=== PATIENT | male | born 1990 | race American Indian/Alaskan Native ===

== ENCOUNTER 2016-08-14 20:45 | Observation (INO) | payer OTHER ==
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
[2016-08-14 22:10] LABS: PH,URINE 6.5 (4.7-8.0); URINE BILIRUBIN NEGATIVE (NEGATIVE); URINE BLOOD NEGATIVE (NEGATIVE); URINE GLUCOSE (UA) NEGATIVE (NEGATIVE); URINE KETONE NEGATIVE (NEGATIVE); URINE LEUKOCYTE ESTERASE NEGATIVE Leu/uL (NEGATIVE); URINE PROTEIN NEGATIVE mg/dL (<30 mg/dL); URINE UROBILINOGEN 0.2 E.U./dL (<1 E.U./dL)
[2016-08-14 22:11] LABS: URINE APPEARANCE CLEAR (CLEAR); URINE COLOR YELLOW (YELLOW)
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
[2016-08-14] MEDS ORDERED: Vancomycin 1gm in NS 250ml 250 ML IVPB STA (23:53)
[2016-08-14] MEDS ORDERED: Piperacillin/Tazobact 3.375 gm 100 ML IVPB STA (23:53)
[2016-08-15 00:26] LABS: ADD MANUAL DIFF? NO
[2016-08-15 00:30] LABS: BASO # 0.01 K/mm3 (0.0-2.0); BASO % 0.1 % (0.0-3.0); EOS # 0.1 (0.0-0.7); EOS % 1.3 % (1.5-5.0); GRAN # 6.66 (1.4-6.5); GRAN % 73.4 % (50.0-68.0); HEMATOCRIT 44.1 % (42.0-52.0); LYMPH # 1.9 (1.2-3.4); MEAN CELL VOLUME 91.3 fL (80.0-105.0); MEAN CORPUSCULAR HEMOGLOBIN 32.5 pg (25.0-35.0); MEAN CORPUSCULAR HGB CONC 35.6 g/dl (31.0-37.0); MEAN PLATELET VOLUME 11.6 fl (7.0-11.0); MONO # 0.4 (0.1-0.6); MONO % 4.2 % (1.0-6.0); PLATELET COUNT 232 10^3/uL (120.0-450.0); RED CELL DISTRIBUTION WIDTH 13.8 % (11.5-14.5); WHITE BLOOD COUNT 9.1 10^3/ul (4.5-11.0)
[2016-08-15 00:42] LABS: INR 1.03 (0.93-1.08); PARTIAL THROMBOPLASTIN TIME 29.7 Seconds (23.7-30.8)
[2016-08-15 00:53] LABS: ALB/GLOB RATIO 1.2 (1.1-1.8); ALKALINE PHOSPHATASE 108 U/L (38-133); ALT/SGPT 13 U/L (7-56); AST/SGOT 23 U/L (15-59); BILIRUBIN,TOTAL 0.6 mg/dL (0.2-1.3); BLOOD UREA NITROGEN 17 mg/dL (7-21); CALCIUM 8.9 mg/dL (8.4-10.5); CARBON DIOXIDE 27 mmol/L (21-33); CHLORIDE 101 mmol/L (98-107); GFR AFRICAN-AMERICAN > 60; GLUCOSE,RANDOM 96 mg/dL (70-110); MAGNESIUM 1.8 mg/dL (1.7-2.2); PHOSPHOROUS 4.2 mg/dL (2.5-4.5); POTASSIUM 3.6 mmol/L (3.6-5.0); SODIUM 135 mmol/L (132-148); TOTAL PROTEIN 6.9 g/dL (5.8-8.3)
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
[2016-08-15] MEDS ORDERED: metroNIDAZOLE IV 500 mg/100 ml 100 ML IVPB SCH (06:00)
[2016-08-15] MEDS ORDERED: Vancomycin 1gm in NS 250ml 250 ML IVPB SCH (06:15)
[2016-08-15] MEDS ORDERED: Pantoprazole 40 mg EC Tab PO SCH (06:30)
[2016-08-15 07:29] LABS: ADD MANUAL DIFF? NO
[2016-08-15 07:35] LABS: EOS # 0.1 (0.0-0.7); EOS % 1.1 % (1.5-5.0); GRAN # 9.76 (1.4-6.5); GRAN % 88.2 % (50.0-68.0); HEMATOCRIT 44.9 % (42.0-52.0); LYMPH # 0.8 (1.2-3.4); LYMPH % 7.3 % (22.0-35.0); MEAN CELL VOLUME 91.1 fL (80.0-105.0); MEAN CORPUSCULAR HEMOGLOBIN 31.6 pg (25.0-35.0); MEAN CORPUSCULAR HGB CONC 34.7 g/dl (31.0-37.0); MEAN PLATELET VOLUME 11.4 fl (7.0-11.0); MONO # 0.4 (0.1-0.6); MONO % 3.4 % (1.0-6.0); PLATELET COUNT 230 10^3/uL (120.0-450.0); RED CELL DISTRIBUTION WIDTH 13.9 % (11.5-14.5); WHITE BLOOD COUNT 11.1 10^3/ul (4.5-11.0)
[2016-08-15 07:54] VITALS: O2SAT 100
[2016-08-15 08:26] LABS: ALB/GLOB RATIO 1.2 (1.1-1.8); ALKALINE PHOSPHATASE 104 U/L (38-133); ALT/SGPT 15 U/L (7-56); AST/SGOT 21 U/L (15-59); BILIRUBIN,TOTAL 0.9 mg/dL (0.2-1.3); BLOOD UREA NITROGEN 15 mg/dL (7-21); CALCIUM 8.9 mg/dL (8.4-10.5); CARBON DIOXIDE 25 mmol/L (21-33); CHLORIDE 104 mmol/L (98-107); GFR AFRICAN-AMERICAN > 60; GLUCOSE,RANDOM 96 mg/dL (70-110); POTASSIUM 3.8 mmol/L (3.6-5.0); SODIUM 138 mmol/L (132-148); TOTAL PROTEIN 6.7 g/dL (5.8-8.3)
[2016-08-15 09:28] LABS: ERYTHROCYTE SEDIMENTATION RATE 4 mm/hr (0.0-15.0)
[2016-08-15] MEDS ORDERED: cefTRIAXone 1 gm 100 ML IVPB SCH (10:00)
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
[2016-08-15] MEDS ORDERED: Piperacillin/Tazobact 3.375 gm 100 ML IVPB SCH (12:00)
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
--- NOTE | 2016-08-15 17:10 | NM ---
PROCEDURE: Three-phase bone scan HISTORY: rule out osteomyelitis of the lumbar spine COMPARISON: CT lumbar spine August 14, 2016. TECHNIQUE: Radionuclide dose: 28.0 Tc99m MDP Site of administration: Indwelling intravenous line Technique: Three-phase attention lumbar spine. FINDINGS: Flow component: No flow abnormalities identified to suggest an acute inflammatory, osseous process. Blood pool component: No abnormalities on the blood pool component. Delayed images at 3:00: Abnormal increased uptake and posterior lateral left ribs including left 8th, 9th and 12th ribs. Etiology, significance is uncertain. IMPRESSION: Negative study for acute osseous process.
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
[2016-08-15 18:08] VITALS: BP 127/68; PULSE 69; RESP 16; TEMP 99.1
== END 2016-08-15 19:05 | disposition left against medical advice (07) ==
LOC: EDBD 20:45 → ED 20:45 → ERH 08-15 01:03 → 5RSO 08-15 02:42
PROVIDERS: ADMIT Internal Medicine; ATTEND Internal Medicine
DX: M54.5 Low back pain (principal); S39.012A Strain of muscle, fascia and tendon of lower back, initial encounter; J45.909 Unspecified asthma, uncomplicated; F17.290 Nicotine dependence, other tobacco product, uncomplicated; F12.90 Cannabis use, unspecified, uncomplicated
CPT/HCPCS: 72131; 74176; 78315; 80053; 81003; 83735; 84100; 85025; 85610; 85651; 85730; 86140; 87040; 96365; 96366; 96367; 96372; 96375; 99285; A9561; G0378; J1885; J2543

== ENCOUNTER 2017-09-29 15:14 | Emergency (ER) | payer MEDICAID, OTHER ==
[2017-09-29 15:53] VITALS: BMI 25.8
[2017-09-29 16:07] VITALS: TEMP 98.3
[2017-09-29] MEDS ORDERED: DiphenhydrAMINE 12.5 mg/5 ml LIQ UD (5 ml) PO STA (16:19)
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
[2017-09-29 17:58] VITALS: BP 125/70; PULSE 81; RESP 17; O2SAT 100
== END 2017-09-29 17:30 | disposition home or self-care (01) ==
LOC: ED 15:14
DX: L50.9 Urticaria, unspecified (principal)

== ENCOUNTER 2017-11-15 01:14 | Emergency (ER) | payer MEDICAID, OTHER ==
[2017-11-15 01:51] VITALS: O2SAT 99
[2017-11-15] MEDS ORDERED: Sodium Chloride 0.9% 1,000 ML IV STA (01:53)
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
[2017-11-15 02:00] VITALS: BMI 24.4
[2017-11-15 02:43] LABS: PH,URINE 6.5 (4.7-8.0); URINE BILIRUBIN NEGATIVE (NEGATIVE); URINE BLOOD TRACE-LYSED (NEGATIVE); URINE GLUCOSE (UA) NEGATIVE (NEGATIVE); URINE LEUKOCYTE ESTERASE NEGATIVE Leu/uL (NEGATIVE); URINE PROTEIN NEGATIVE mg/dL (<30 mg/dL); URINE UROBILINOGEN 0.2 E.U./dL (<1 E.U./dL)
[2017-11-15 02:53] LABS: URINE APPEARANCE CLEAR (CLEAR); URINE COLOR YELLOW (YELLOW)
[2017-11-15 02:57] LABS: BARBITURATES, UR NEGATIVE (NEGATIVE); BENZODIAZEPINES, UR NEGATIVE (NEGATIVE); OPIATES, UR NEGATIVE (NEGATIVE); PHENCYCLIDINE, UR NEGATIVE (NEGATIVE)
[2017-11-15 03:07] LABS: URINE EPITHELIAL CELLS 0 - 2 /hpf (0-5); URINE RBC 0 - 2 /hpf (0-2); URINE WBC 0 - 2 /hpf (0-6)
[2017-11-15 03:57] VITALS: RESP 18; TEMP 98.3
[2017-11-15 04:55] LABS: BASO # 0.02 K/mm3 (0.0-2.0); BASO % 0.2 % (0.0-3.0); EOS # 0.1 (0.0-0.7); EOS % 0.6 % (1.5-5.0); GRAN # 7.92 (1.4-6.5); GRAN % 76.2 % (50.0-68.0); LYMPH # 1.8 (1.2-3.4); MEAN CELL VOLUME 90.6 fl (80.0-105.0); MEAN CORPUSCULAR HEMOGLOBIN 31.4 pg (25.0-35.0); MEAN CORPUSCULAR HGB CONC 34.6 g/dl (31.0-37.0); MEAN PLATELET VOLUME 11.1 fl (7.0-11.0); MONO # 0.6 (0.1-0.6); RBC 4.78 10^6/uL (3.5-6.1); RED CELL DISTRIBUTION WIDTH 13.8 % (11.5-14.5); WHITE BLOOD COUNT 10.4 10^3/ul (4.5-11.0)
[2017-11-15 05:08] LABS: ALB/GLOB RATIO 1.3 (1.1-1.8); ALBUMIN 4.6 g/dL (3.0-4.8); ALT/SGPT 33 U/L (7-56); AST/SGOT 35 U/L (17-59); BLOOD UREA NITROGEN 12 mg/dL (7-21); CALCIUM 9.5 mg/dL (8.4-10.5); GFR AFRICAN-AMERICAN > 60; GFR NON-AFRICAN AMERICAN > 60
[2017-11-15 05:29] LABS: CK-MB 4.1 ng/mL (0.0-3.6)
[2017-11-15 05:49] VITALS: BP 128/76; PULSE 59
--- NOTE | 2017-11-15 10:14 | CT ---
PROCEDURE: CT HEAD WITHOUT CONTRAST. HISTORY: Confusion COMPARISON: None available. TECHNIQUE: Axial computed tomography images were obtained through the head/brain without intravenous contrast. Radiation dose: Total exam DLP = 858.11 mGy-cm. This CT exam was performed using one or more of the following dose reduction techniques: Automated exposure control, adjustment of the mA and/or kV according to patient size, and/or use of iterative reconstruction technique. FINDINGS: HEMORRHAGE: No intracranial hemorrhage. BRAIN: No mass effect or edema. No atrophy or chronic microvascular ischemic changes. VENTRICLES: Unremarkable. No hydrocephalus. CALVARIUM: Marked thickening and sclerosis with lucent areas seen in the inner table of the right frontal, sphenoid bone including sella turcica, the right zygoma, right aspect of the ethmoid air complex as well as the glabella and to a lesser degree portions of the left sphenoid bone and frontal calvarium. . These changes result in the diminished volume of the right orbit due to encroaching sclerotic and thickened bone. 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 PARANASAL SINUSES: Unremarkable as visualized. No significant inflammatory changes. MASTOID AIR CELLS: Unremarkable as visualized. No inflammatory changes. OTHER FINDINGS: None. IMPRESSION: No acute intracranial hemorrhage. No evidence of large acute infarct. 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
[2017-11-15 12:27] LABS: PROLACTIN 10.1 ng/mL (3.7-17.9)
--- NOTE | 2017-11-15 13:44 | CARD ---
APPROVED REPORT EKG Measurement Heart [id number] <Conclusion> Marked sinus bradycardia Nonspecific ST abnormality Abnormal ECG
--- NOTE | 2017-11-15 13:44 | CARD ---
APPROVED REPORT EKG Measurement Heart [id number] 154P8 [id number] <Conclusion> Marked sinus bradycardia Abnormal ECG
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
== END 2017-11-15 05:51 | disposition home or self-care (01) ==
LOC: ED 01:14
DX: R41.0 Disorientation, unspecified (principal); F17.210 Nicotine dependence, cigarettes, uncomplicated
CPT/HCPCS: 70450; 74176; 80053; 80320; 80324; 80345; 80346; 80349; 80353; 80358; 80361; 81001; 82550; 82553; 83992; 84146; 85025; 93005; 99285; J7030